=== PATIENT | male | born 1945 | race Hispanic/Latino ===

== ENCOUNTER 2020-09-15 18:55 | Emergency (ER) | payer OTHER, MEDICARE ==
[2020-09-15 19:28] LABS: APPEARANCE,URINE Clear (CLEAR); BILIRUBIN,URINE Negative (NEGATIVE); COLOR,URINE Yellow (YELLOW); GLUCOSE, URINE (UA) 500 mg/dL (NEGATIVE); KETONES,URINE Negative (NEGATIVE); LEUKOCYTE ESTERASE ,URINE Moderate (NEGATIVE); NITRATE,URINE Negative (NEGATIVE); OCCULT BLOOD,URINE Small (NEGATIVE); PROTEIN,URINE POS 1+ mg/dL (NEGATIVE)
[2020-09-15 19:40] LABS: BACTERIA,URINE Many /HPF (None Seen); MUCUS,URINE Few LPF (None Seen); SQUAMOUS EPITHELIAL CELL,UR Few /HPF (0-2); WBC,URINE 26-50 /HPF (0-1)
[2020-09-15] MEDS ORDERED: CEFTRIAXONE SODIUM 1 GM ONE (19:47)
== END 2020-09-15 20:08 | disposition home or self-care (01) ==
LOC: EDH 18:55
DX: N39.0 Urinary tract infection, site not specified (principal); R33.9 Retention of urine, unspecified; E11.9 Type 2 diabetes mellitus without complications; I10 Essential (primary) hypertension
CPT/HCPCS: 51702; 81001; 87077; 87088; 87186; 96372; 99284; J0696

== ENCOUNTER 2020-10-19 22:45 | Emergency (ER) | payer OTHER, MEDICARE ==
[~2020-10-19] VITALS: Ht 160 cm; Wt 99.8 kg
[2020-10-19 23:35] VITALS: BP 130/74
== END 2020-10-20 00:59 | disposition home or self-care (01) ==
LOC: EDH 23:00
DX: T83.098A Other mechanical complication of other urinary catheter, initial encounter (principal); E11.9 Type 2 diabetes mellitus without complications; I10 Essential (primary) hypertension; Y92.89 Other specified places as the place of occurrence of the external cause
CPT/HCPCS: 99281